=== PATIENT | male | born 2000 | race African-American/Black ===

== ENCOUNTER 2019-10-19 04:08 | Emergency (ER) | payer SELFPAY ==
[~2019-10-19] VITALS: Ht 182.9 cm; Wt 77.0 kg
[2019-10-19] MEDS ORDERED: ALBUTEROL (0.083%) 2.5MG/3ML NEB HHN STA (06:05)
[2019-10-19] MEDS ORDERED: IPRATROPIUM BROMIDE (0.02%) 0.5MG/2.5ML NEB HHN STA (06:05)
[2019-10-19] MEDS ORDERED: PREDNISONE 20MG TABLET PO STA (06:05)
[2019-10-19 07:30] VITALS: BP 122/60
== END 2019-10-19 08:00 | disposition home or self-care (01) ==
LOC: ER 04:08
DX: J45.901 Unspecified asthma with (acute) exacerbation (principal)
CPT/HCPCS: 71045; 94640; 99283; J7611; Z7610